=== PATIENT | male | born 1955 | race Caucasian/White ===

== ENCOUNTER 2023-12-30 07:30 | Outpatient (RCR) | payer MEDICARE, OTHER, SELFPAY ==
--- NOTE | 2023-09-14 09:31 | HP.PTEVAL_ITS ---
Patient's Visit Information Visit Information Visit Information: OSCAR FERRIS is a 68 year old M referred to Physical Therapy by Dr. Emmett Kyle MD with a diagnosis of SPINAL STENOSIS OF CERICAL REGION. Date of Evaluation: 09/14/23 Physical Therapist: Fernando Gilliam, PT, Cert MDT, OCS Visit Plan Frequency: 2x /Week Duration: 4 Weeks Plan: PT INTERVENTIONS SAM EX'S FOR CERVICAL/THORACIC , POSTURAL EX'S ,ICTX 16#-25# X15 MINS ,MANUAL THERAPY TRACTION ,US AND ACTIVITY MODIFICATION Subjective Subjective: This 68 y/o male presents to physical therapy with cervical radiculopathy. Patient has had thoracic and cervical pain several years. Patient seen Family DR wiggins recommended orthopedic consult . Patient had MRI and showed HNP and stenosis C3-7 and T1 -T5 . Patient located left cervical radiaties left /scapular and thoracic radiates to ribs and anterior chest. Patient has referral to pain management for injection. Did recommend possible surgery. Aggravating factors flexion ,reading ,driving ,turning neck,sitting and lifting . Alleviating factors rest . No medication. C/O MCELROY ,denies dizziness /nausea/tinnitus.Denies paresthesia/tingling. Patient pain affects sleeping. Patient has no treatment . Patient pain affects QOL and function/housework tasks. Patient goals to avoid surgery and no pain SOCIAL: VOCATION: retired Pain Left Neck: Pain Intensity (Out of 10): 3 Pain Intensity Range: 10 Left Shoulder: Pain Intensity (Out of 10): 4 Pain Intensity Range: 10 Objective Objective: POSTURE:mild forward posture PALPATION: TTP C7 -T5 ,UT/levator left> right NEURO: c/o paresthesia/tingling scapular ,5-6-7 1/3 AROM: BUE WFL CERVICAL ROM: flexion min/mod loss pain , lateral flexion/rotation min/mod loss pain left ,extension min/mod loss right MMT: Grossly 4/5 shoulders /elbow/wrist Special Tests C/S Radiculapathy - Left Upper limb tension test: Negative C/S Radiculapathy - Right Upper limb tension test: Negative C/S Radiculapathy - Left Spurlings: Positive C/S Radiculapathy - Right Spurlings: Negative C/S Radiculapathy - Left Cervical distraction: Negative C/S Radiculapathy - Right Cervical distraction: Negative C/S Radiculapathy - Left Relief test: Negative C/S Radiculapathy - Right Relief test: Negative Sharp Brody: Negative Vertebral Artery Test: Negative Alar Ligament Test: Negative Cervical Sitting: Protrusion - Mechanical Response: No effect Cervical Sitting: Protrusion - Symptoms During Testing: Increases Cervical Sitting: Protrusion - Symptoms After Testing: No better Cervical Sitting: Retraction - Mechanical Response: No effect Cervical Sitting: Retraction - Symptoms During Testing: Decreases Cervical Sitting: Retraction - Symptoms After Testing: Better Cervical Sitting: Retraction-Extension - Mechanical Response: No effect Cerv Sitting: Retraction-Extension - Symptoms During Testing: Decreases Cerv Sitting: Retraction-Extension - Symptoms After Testing: No better Cervical Sitting: Sidebend Right - Mechanical Response: No effect Cervical Sitting: Sidebend Right - Symptoms During Testing: No effect Cervical Sitting: Sidebend Right - Symptoms After Testing: No effect Cervical Sitting: Sidebend Left - Mechanical Response: No effect Cervical Sitting: Sidebend Left - Symptoms During Testing: Increases Cervical Sitting: Sidebend Left - Symptoms After Testing: No worse Cervical Sitting: Rotation Right - Mechanical Response: No effect Cervical Sitting: Rotation Right - Symptoms During Testing: Increases Cervical Sitting: Rotation Right - Symptoms After Testing: No worse Cervical Sitting: Rotation Left - Mechanical Response: No effect Cervical Sitting: Rotation Left - Symptoms During Testing: Increases Cervical Sitting: Rotation Left - Symptoms After Testing: Worse Cervical Sitting: Flexion - Mechanical Response: No effect Cervical Sitting: Flexion - Symptoms During Testing: Increases Cervical Sitting: Flexion - Symptoms After Testing: Worse Thoracic Sitting: Flexion - Mechanical Response: No effect Thoracic Sitting: Flexion - Symptoms During Testing: No effect Thoracic Sitting: Flexion - Symptoms After Testing: No effect Thoracic Sitting: Extension - Mechanical Response: No effect Thoracic Sitting: Extension - Symptoms During Testing: No effect Thoracic Sitting: Extension - Symptoms After Testing: No effect Thoracic Sitting: Right rotation - Mechanical Response: No effect Thoracic Sitting: Right Rotation - Symptoms During Testing: No effect Thoracic Sitting: Left rotation - Mechanical Response: No effect Thoracic Sitting: Left Rotation - Symptoms During Testing: No effect Thoracic Sitting: Left Rotation - Symptoms After Testing: No effect Balance/Special Test Scores Oswestry Neck Score: 18 Goals Goal 1:: Patient to be I with HEP for neck Goal Time Frame: 4-6 Weeks Goal 2:: Patient to improve cervical ROM for function of recovery to turning neck with driving and reading Goal Time Frame: 4-6 Weeks Goal 3:: Patient to demonstrate 50% improvement with less pain and improved function Goal Time Frame: 4-6 Weeks Goal 4:: Patient to improve neck oswestry score by 5 points to improve QOL and function, Goal Time Frame: 4-6 Weeks Goal 5:: Patient be able to perform housework and ADLS with min limiations Goal Time Frame: 4-6 Weeks Rehabilitation Potential Physical Therapy Diagnosis: This patient has cervical derangement and thoracic derangement with pain radiating across chest with pain with positioning and motion testing worse with flexion better with extension and traction thus benefit from skilled PT Rehabilitation Potential: Good Anticipated Interventions Patient/Client Instruction: Educate patient on: Condition and Plan of Care For the Purpose of:: To decrease pain, To increase ROM, To improve muscle pe rformance and motor function, To improve ability to perform ADL's, To increase tolerance to activity/condition/position, To improve ability of physical actions for home/community/work/leisure, To improve health of tissue, To decrease soft tissue restriction, To increase flexibility/ROM and To prevent re-injury Therapeutic Exercise to Include: Strength training, Postural training, Flexibilty training, Active ROM and Sam Exercises For the Purpose of:: To decrease pain, To increase ROM, To improve muscle performance and motor function, To increase tolerance to activity/condition/position, To improve ability of physical actions for home/community/work/leisure, To improve health of tissue, To decrease soft tissue restriction and To increase flexibility/ROM TENS: Yes IF ES: Yes Cryotherapy (ice pack, ice massage): Yes Thermo therapy (hot pack): Yes Ultrasound (thermal/non thermal): Yes Pelvic traction prone: Yes (16#-25#) For the Purpose of:: To decrease pain, To increase ROM, To improve nutrient delivery to tissue, To increase oxygenation perfusion, To improve health of tissue, To decrease soft tissue restriction and To increase flexibility/ROM Text: Thank you for the opportunity to evaluate your patient. For Medicare and Medicare HMO plans, please review the plan of care and approve it. It will need to be FAXED BACK to us at [phone] for Medicare purposes. For Medicare only, by signing this I certify the plan of care. Please let me know if there are questions or concerns regarding this plan of care. Physician Signature: Date:
--- NOTE | 2023-10-19 11:18 | HP.PTREVAL ---
Re-Evaluation Intro: Dr. Emmett Kyle MD, It has been my pleasure to treat OSCAR FERRIS over the last 10 visits for SPINAL STENOSIS OF CERICAL REGION. Please see the progress note below for an update on the physical therapy plan of care! Subjective Subjective: Doing better with less pain in neck no worse able to do ex's no problems Received new order to cont wit PT Objective Objective/Function: * Patient has progressing with decreasing pain and with increase cervical ROM with goals addressed and progressing and are appropriate for PT. POSTURE:mild forward posture PALPATION: TTP C7 -T5 ,UT/levator left> right NEURO: less paresthesia/tingling scapular ,C5-6-7 1/ AROM: BUE WFL CERVICAL ROM: flexion min loss pain , lateral flexion/rotation min/mod loss pain left ,extension min/mod loss right MMT: Grossly 4/5 shoulders /elbow/wrist Special Tests C/S Radiculapathy - Left Upper limb tension test: Negative C/S Radiculapathy - Right Upper limb tension test: Negative C/S Radiculapathy - Left Spurlings: Positive C/S Radiculapathy - Right Spurlings: Negative C/S Radiculapathy - Left Cervical distraction: Negative C/S Radiculapathy - Right Cervical distraction: Negative C/S Radiculapathy - Left Relief test: Negative C/S Radiculapathy - Right Relief test: Negative Plan Plan Plan: PT INTERVENTIONS SAM EX'S FOR CERVICAL/THORACIC , POSTURAL EX'S ,ICTX 16#-25# 15-20MINS ,MANUAL THERAPY TRACTION ,US AND ACTIVITY MODIFICATION Balance/Gait/Functional tests Balance/Special Test Scores Oswestry Neck Score: 13 Goals Goals Goal 1:: Patient to be I with HEP for neck Goal Time Frame: 4-6 Weeks Goal Progress: Progressing Goal 2:: Patient to improve cervical ROM for function of recovery to turning neck with driving and reading Goal Time Frame: 4-6 Weeks Goal Progress: Progressing Goal 3:: Patient to demonstrate 50% improvement with less pain and improved function Goal Time Frame: 4-6 Weeks Goal Progress: Progressing Goal 4:: Patient to improve neck oswestry score by 5 points to improve QOL and function, Goal Time Frame: 4-6 Weeks Goal Progress: Progressing Goal 5:: Patient be able to perform housework and ADLS with min limiations Goal Time Frame: 4-6 Weeks Goal Progress: Progressing Anticipated Interventions Anticipated Interventions Patient/Client Instruction: Educate patient on: Condition and Plan of Care For the Purpose of:: To decrease pain, To increase ROM, To improve muscle performance and motor function, To improve ability to perform ADL's, To increase tolerance to activity/condition/position, To improve ability of physical actions for home/community/work/leisure, To improve health of tissue, To decrease soft tissue restriction, To increase flexibility/ROM and To prevent re-injury Therapeutic Exercise to Include: Strength training, Postural training, Flexibilty training, Active ROM and Sam Exercises For the Purpose of:: To decrease pain, To increase ROM, To improve muscle performance and motor function, To increase tolerance to activity/condition/position, To improve ability of physical actions for home/community/work/leisure, To improve health of tissue, To decrease soft tissue restriction and To increase flexibility/ROM TENS: Yes IF ES: Yes Cryotherapy (ice pack, ice massage): Yes Thermo therapy (hot pack): Yes Ultrasound (thermal/non thermal): Yes Pelvic traction prone: Yes (16#-25#) For the Purpose of:: To decrease pain, To increase ROM, To improve nutrient delivery to tissue, To increase oxygenation perfusion, To improve health of tissue, To decrease soft tissue restriction and To increase flexibility/ROM Re-Evaluation Ending Re-evaluation ending: Please do not hesitate to contact me at [phone] by phone or if you have questions or concerns regarding this new plan of care! Sincerely, Fernando Gilliam, PT, Cert MDT, OCS
--- NOTE | 2023-12-02 08:10 | HP.PTREVAL_ITS ---
Re-Evaluation Intro: Dr. Emmett Kyle MD, It has been my pleasure to treat OSCAR FERRIS over the last 17 visits for SPINAL STENOSIS OF CERICAL REGION. Please see the progress note below for an update on the physical therapy plan of care! Subjective Subjective: Seen Dr recommended Plan to do epidural injection hear in town Objective Objective/Function: * Patient has received new order to cont with PT thus patient will benefit from continue skilled PT to address and goals are appropriat* PALPATION: TTP C7 -T5 ,UT/levator left> right NEURO: less paresthesia/tingling scapular ,C5-6-7 1/ AROM: BUE WFL CERVICAL ROM: flexion min loss pain , lateral flexion/rotation min/mod loss pain left ,extension min/mod loss right MMT: Grossly 4/5 shoulders /elbow/wrist Special Tests C/S Radiculapathy - Left Upper limb tension test: Negative C/S Radiculapathy - Right Upper limb tension test: Negative C/S Radiculapathy - Left Spurlings: Positive C/S Radiculapathy - Right Spurlings: Negative C/S Radiculapathy - Left Cervical distraction: Negative C/S Radiculapathy - Right Cervical distraction: Negative C/S Radiculapathy - Left Relief test: Negative C/S Radiculapathy - Right Relief test: Negative Plan Plan Plan: CONT WITH POC 2X/WEEK FOR 4 WEEKS PT INTERVENTIONS SAM EX'S FOR CERVICAL/THORACIC , POSTURAL EX'S ,ICTX 16#- 25# 15-20MINS ,MANUAL THERAPY TRACTION ,US AND ACTIVITY MODIFICATION Balance/Gait/Functional tests Balance/Special Test Scores Oswestry Neck Score: 13 Goals Goals Goal 1:: Patient to be I with HEP for neck Goal Time Frame: 4-6 Weeks Goal Progress: Progressing Goal 2:: Patient to improve cervical ROM for function of recovery to turning neck with driving and reading Goal Time Frame: 4-6 Weeks Goal Progress: Progressing Goal 3:: Patient to demonstrate 50% improvement with less pain and improved function Goal Time Frame: 4-6 Weeks Goal Progress: Progressing Goal 4:: Patient to improve neck oswestry score by 5 points to improve QOL and function, Goal Time Frame: 4-6 Weeks Goal Progress: Progressing Goal 5:: Patient be able to perform housework and ADLS with min limiations Goal Time Frame: 4-6 Weeks Goal Progress: Progressing Anticipated Interventions Anticipated Interventions Patient/Client Instruction: Educate patient on: Condition and Plan of Care For the Purpose of:: To decrease pain, To increase ROM, To improve muscle performance and motor function, To improve ability to perform ADL's, To increase tolerance to activity/condition/position, To improve ability of physical actions for home/community/work/leisure, To improve health of tissue, To decrease soft tissue restriction, To increase flexibility/ROM and To prevent re-injury Therapeutic Exercise to Include: Strength training, Postural training, Flexibilty training, Active ROM and Sam Exercises For the Purpose of:: To decrease pain, To increase ROM, To improve muscle performance and motor function, To increase tolerance to activity/condition/position, To improve ability of physical actions for home/community/work/leisure, To improve health of tissue, To decrease soft tissue restriction and To increase flexibility/ROM TENS: Yes IF ES: Yes Cryotherapy (ice pack, ice massage): Yes Thermo therapy (hot pack): Yes Ultrasound (thermal/non thermal): Yes Pelvic traction prone: Yes (16#-25#) For the Purpose of:: To decrease pain, To increase ROM, To improve nutrient delivery to tissue, To increase oxygenation perfusion, To improve health of tissue, To decrease soft tissue restriction and To increase flexibility/ROM Re-Evaluation Ending Re-evaluation ending: Please do not hesitate to contact me at [phone] by phone or Fax: if you have questions or concerns regarding this new plan of care! Sincerely, Fernando Gilliam, PT, Cert MDT, OCS
--- NOTE | 2023-12-30 07:59 | HP.PTDCSUM ---
Discharge Summary D/C summary: It has been my pleasure to treat OSCAR FERRIS referred by Dr. Emmett Kyle MD, with the diagnosis of SPINAL STENOSIS OF CERICAL REGION for a total of 23 visit(s). Discharge Date: Please see the following information for a summary of their discharge status. Subjective Subjective: Doing well Pain Left Neck: Pain Intensity (Out of 10): 3 Left Shoulder: Pain Intensity (Out of 10): 3 Overall Improvement % Improvement: 60 Objective Objective/Function: PALPATION:,UT/levator left> right NEURO: left hand paresthesia/tingling scapular ,C5-6-7 07/20 AROM: BUE WFL CERVICAL ROM: flexion min loss pain , lateral flexion/rotation min loss pain left ,extension min/mod loss right MMT: Grossly 4/5 shoulders /elbow/wrist Goals Goal 1:: Patient to be I with HEP for neck Goal Progress: Goal Met Goal 2:: Patient to improve cervical ROM for function of recovery to turning neck with driving and reading Goal Progress: Goal Met Goal 3:: Patient to demonstrate 50% improvement with less pain and improved function Goal Progress: Goal Met Goal 4:: Patient to improve neck oswestry score by 5 points to improve QOL and function, Goal Progress: Goal Met Goal 5:: Patient be able to perform housework and ADLS with min limiations Goal Progress: Goal Met Plan Plan: D/C TO HEP AND HOME TRACTION D/C Information d/c sentence: If there are questions or concerns regarding this patient's physical therapy, please feel free to call me at [phone]. Thank you for the referral of this patient. Sincerely, Fernando Gilliam, PT, Cert MDT, OCS Balance/Gait/Functional tests Balance/Special Test Scores Oswestry Neck Score: 8 Improvement % Improvement: 60
== END 2023-12-30 19:00 | disposition home or self-care (01) ==
LOC: PT 07:30
PROVIDERS: PCP Internal Medicine; Referring Provider Orthopaedic Surgery Orthopaedic Surgery of the Spine; Visit Provider Orthopaedic Surgery Orthopaedic Surgery of the Spine
DX: M48.02 Spinal stenosis, cervical region (principal)
CPT/HCPCS: 97012; 97035; 97110; 97162; 97164